=== PATIENT | male | born 1975 | race Caucasian/White ===

== ENCOUNTER 2025-05-22 16:20 | Outpatient (REF) | payer MEDICAID, SELFPAY ==
[2025-05-22 19:19] LABS: Abs Immature Grans 0.03 10^3/uL (0.0-0.06); HCT 45.5 % (40.0-50.0); HGB 15.4 g/dL (13.5-17.5); Immature Grans % 0.4 %; MCH 32.0 pg (27.0-33.0); MCHC 33.8 % (32.0-36.0); MCV 95 fL (80-95); MPV 8.9 fL (8.0-11.0); Platelet Count 374 10^3/uL (130-400); RBC 4.81 10^6/uL (4.36-5.78); RDW 11.9 % (11.8-14.1); RDW-SD 41.7 fL; WBC 7.66 10^3/uL (4.4-10.8)
[2025-05-22 19:35] LABS: TSH (W/Ref FT4) 2.13 uIU/mL (0.55-4.78)
[2025-05-22 19:39] LABS: ALT 14 U/L (10-49); AST 22 U/L (<34); Albumin 5.0 g/dL (3.2-5.0); Alkaline Phosphatase 66 U/L (46-116); Anion Gap 4.4 mmol/L (3-11); BUN 9 mg/dL (9-23); Bilirubin, Total 0.7 mg/dL (0.2-1.2); CO2 29.6 mmol/L (20.0-31.0); Calcium 9.8 mg/dL (8.3-10.6); Chloride 108 mmol/L (98-107); Cholesterol 226 mg/dL (<200); Glucose 92 mg/dL (74-106); HDL Cholesterol 76 mg/dL (>or=40); Potassium 4.1 mmol/L (3.5-5.1); Sodium 142 mmol/L (136-145); Total Protein 8.0 g/dL (5.7-8.2)
== END 2025-05-22 16:21 | disposition home or self-care (01) ==
LOC: NCHCN 16:20
PROVIDERS: Visit Provider Nurse Practitioner Family
DX: F10.10 Alcohol abuse, uncomplicated (principal); F32.2 Major depressive disorder, single episode, severe without psychotic features; Z13.220 Encounter for screening for lipoid disorders
CPT/HCPCS: 80053; 80061; 84439; 84443; 85025

== ENCOUNTER 2025-05-29 00:54 | Outpatient (CLI) | payer MEDICAID, SELFPAY ==
[2025-05-29] MEDS: Levalbuterol HFA 15 GM INH 4 PUFF IH (16:21)
[2025-05-29] MEDS: Inhaler, Assist Device 1 EACH MC (16:21)
--- NOTE | 2025-05-30 11:22 | W.PFT ---
Date of service: 05/29/25 Time of Service: 14:48 Pulmonary Function Test Result Indications: Dyspnea Impression 1. Good patient effort was noted. ATS standards for reproducibility were met. 2. Spirometry showed mild obstructive lung disease with an FEV1 of 94% (3.64 L) 3. Following the administration of a bronchodilator there was not a significant response 4. TLC and RV were elevated, consistent with air trapping 5. DLCO was normal at 99% predicted
== END 2025-05-29 00:55 | disposition home or self-care (01) ==
LOC: RT 00:54
PROVIDERS: Visit Provider Nurse Practitioner Family
DX: F17.210 Nicotine dependence, cigarettes, uncomplicated (principal); R06.00 Dyspnea, unspecified; J44.9 Chronic obstructive pulmonary disease, unspecified
CPT/HCPCS: 94060; 94726; 94729